=== PATIENT | female | born 1995 | race African-American/Black ===

== ENCOUNTER 2021-11-17 13:51 | Emergency (ER) | payer SELFPAY ==
[~2021-11-17] VITALS: Ht 170.2 cm; Wt 88.6 kg
[2021-11-17 14:17] VITALS: BP 127/76
[2021-11-17] MEDS ORDERED: IBUPROFEN 600 MG TABLET PO ONE (15:00)
== END 2021-11-17 15:36 | disposition home or self-care (01) ==
LOC: EMS 13:53
DX: S93.402A Sprain of unspecified ligament of left ankle, initial encounter (principal); Z88.8 Allergy status to other drugs, medicaments and biological substances; X50.1XXA Overexertion from prolonged static or awkward postures, initial encounter; Y93.89 Activity, other specified; Y92.89 Other specified places as the place of occurrence of the external cause; Y99.8 Other external cause status
CPT/HCPCS: 99283